=== PATIENT | male | born 1960 | race Caucasian/White ===

== ENCOUNTER 2023-09-25 14:01 | Day surgery (SDC) | payer OTHER, SELFPAY ==
[2023-09-25] MEDS: LACTATED RINGERS 1,000 ML 42 ML IV (14:37)
[2023-09-25 14:50] VITALS: BP 134/74; PULSE 60; RESP 20; TEMP 36.2; O2SAT 98
--- NOTE | 2023-09-25 15:18 | P.HP_ITS ---
History of Present Illness History of Present Illness Chief complaint: EGD Narrative: GE reflux [facility] Medical History Excessive daytime sleepiness (~2014) Fatigue due to sleep pattern disturbance (~2014) Insomnia due to medical condition (~2014) Obesity (BMI 30-39.9) Obstructive sleep apnea, adult (~2014) Snoring (Unknown) Social History Smoking Status: Never smoker alcohol intake: current substance use type: does not use caffeine: Yes Meds Home Medications and Allergies Home Medications Medication Instructions Recorded Confirmed Type amlodipine 5 mg tablet 5 mg PO DAILY 06/21/23 09/25/23 History loratadine 10 mg tablet (Allergy 10 mg PO DAILY 06/21/23 09/25/23 History Relief (loratadine)) pantoprazole 40 mg tablet,delayed 40 mg PO DAILY 06/21/23 09/25/23 History release (Protonix) tizanidine 4 mg capsule 4 mg PO BEDTIME 06/21/23 09/25/23 History Allergies Allergy/AdvReac Type Severity Reaction Status Date / Time PENICILLIN Allergy Mild Uncoded 09/25/23 14:40 TETRACYCLINE Allergy Mild Uncoded 09/25/23 14:40 Exam Vital Signs (past 8 hours): - 09/25/23 14:50 Temperature 97.2 F L Pulse Rate 60 Respiratory Rate 20 Blood Pressure 134/74 Pulse Oximetry 98 Oxygen Delivery Method Room Air Oxygen Delivery Method Room Air Narrative Exam Narrative: Oropharynx free of lesions Chest clear to auscultation percussion Cardiac exam reveals no S3 or murmur Assessment & Plan Assessment & Plan narrative: GE reflux need to assess for Mireles's esophagus and on healed esophagitis. Risks, benefits, alternatives have been explained.
--- NOTE | 2023-09-25 15:19 | PM.OP.EGD ---
Operative Date/Time/Diagnoses Date of procedure: 09/25/23 Pre-op diagnosis: See indication and findings Procedure & Clinicians Study performed: EGD Indications: GERD Surgeon: Dorcas Fu Procedure Notes Procedure in detail: After informed consent was obtained the patient was placed in left lateral decubitus position. The video upper scope was placed into the oropharynx and with the patient's help swallowed into the esophagus. The esophagus stomach and duodenum were carefully examined. On withdrawal, retroflexed view the GE junction was performed. The scope was removed. The patient tolerated procedure well. Blood loss none Complications none Sedation mac Findings 1. Normal esophagus with well-defined squamocolumnar junction. No clear migration of salmon-colored mucosa above the top of the G folds. 2. Moderately patulous LES. 3. Normal stomach 4. Normal duodenal bulb and sweep Mr. Duong just stay on his current medication and follow up as needed in the next 6-12 months
[2023-09-25 15:45] VITALS: BP 125/76; PULSE 72; RESP 13; TEMP 37.2; O2SAT 97
[2023-09-25 15:51] VITALS: BP 129/68; PULSE 66; RESP 12; O2SAT 98
[2023-09-25 15:56] VITALS: BP 125/72; PULSE 64; RESP 12; TEMP 37.2; O2SAT 97
== END 2023-09-25 16:07 | disposition home or self-care (01) ==
PROVIDERS: Referring Provider Internal Medicine Gastroenterology; Visit Provider Internal Medicine Gastroenterology
PROC: 0DJ08ZZ Inspection of Upper Intestinal Tract, Via Natural or Artificial Opening Endoscopic (ICD-10-PCS; CPT 43235; principal; 2023-09-25 15:00)
DX: K21.9 Gastro-esophageal reflux disease without esophagitis (principal)
CPT/HCPCS: 43235; J2704; J3010

== ENCOUNTER → 2024-01-13 08:21 | Outpatient (CLI) | payer OTHER, SELFPAY ==
--- NOTE | 2024-01-13 | DI.US.S_ITS ---
PROCEDURE: US INJECT OR DRAIN JOINT INDICATIONS: BICIPITAL TENDINITIS TECHNIQUE: The indications, alternatives, benefits, risks, and complications of the procedure were explained to the patient. Written informed consent was obtained and placed in the chart. The patient was placed in an appropriate position on the fluoroscopy table, and a site was chosen for percutaneous access under ultrasound guidance. Local anesthetic was administered using a 1% lidocaine solution. A hypodermic or spinal needle was then used to access the symptomatic tendon sheath. Intra-articular location of the needle tip was confirmed by real time ultrasound imaging, followed by steroid administration. The needle was then withdrawn, and a bandage applied to the puncture site. COMPARISON: [facility], US, US INJECT OR DRAIN JOINT, 01/13/2024, 8:52. [facility] [place], CR, XR SHOULDER 2+ VIEWS BILATERAL, 12/12/2020, 16:08. FINDINGS: Joint injected: Right bicipital tendon sheath Medications injected: 4 mL of 40 mg/mL Kenalog and 0.5% Ropivacaine mixture. Complications: None. IMPRESSION: Successful ultrasound guided administration of steroid and anaesthetic solution into the right biceps tendon sheath. Dictated by: Shine Ricci M.D. on 01/13/2024 at 14:20 Approved by: Shine Ricci M.D. on 01/13/2024 at 14:22
--- NOTE | 2024-01-13 | DI.US.S_ITS ---
PROCEDURE: US INJECT OR DRAIN JOINT INDICATIONS: Bicipital tendonitis. TECHNIQUE: The indications, alternatives, benefits, risks, and complications of the procedure were explained to the patient. Written informed consent was obtained and placed in the chart. The patient was placed in an appropriate position on the fluoroscopy table, and a site was chosen for percutaneous access under ultrasound guidance. Local anesthetic was administered using a 1% lidocaine solution. A hypodermic or spinal needle was then used to access the symptomatic biceps tendon sheath. Intra-articular location of the needle tip was confirmed by real time ultrasound imaging, followed by steroid administration. The needle was then withdrawn, and a bandage applied to the puncture site. COMPARISON: [facility], US, US INJECT OR DRAIN JOINT, 01/13/2024, 8:52. FINDINGS: Joint injected: Left biceps tendon sheath Medications injected: 4 mL of 40 mg/mL Kenalog and 0.5% Ropivacaine mixture. Complications: None. IMPRESSION: Successful ultrasound guided administration of steroid and anaesthetic solution into the left biceps tendon sheath. Dictated by: Shine Ricci M.D. on 01/13/2024 at 14:45 Approved by: Shine Ricci M.D. on 01/13/2024 at 14:46
== END ==
PROVIDERS: Referring Provider Orthopaedic Surgery; Visit Provider Orthopaedic Surgery
DX: M75.21 Bicipital tendinitis, right shoulder (principal); M75.22 Bicipital tendinitis, left shoulder
CPT/HCPCS: 20611

== ENCOUNTER → 2024-05-15 19:23 | Outpatient (CLI) | payer OTHER, SELFPAY | PROVIDERS: Referring Provider Internal Medicine; Visit Provider Internal Medicine | DX: Z23 Encounter for immunization (principal) | CPT/HCPCS: 90471; 90656 ==

== ENCOUNTER → 2024-09-17 08:10 | Outpatient (CLI) | payer OTHER, SELFPAY ==
--- NOTE | 2024-09-17 08:11 | DI.MRI.S_ITS ---
PROCEDURE: MR SHOULDER RT WO CON INDICATIONS: bilateral shoulder pain TECHNIQUE: Noncontrast oblique coronal T2 fast spin echo with fat saturation, oblique sagittal T1 spin echo and T2 fast spin echo with fat saturation, axial T1 spin echo and T2 fast spin echo with fat saturation through the shoulder. COMPARISON: [facility], MR, MR SHOULDER LT WO CON, 09/17/2024, 8:28. [facility] [place], CR, XR SHOULDER 2+ VIEWS BILATERAL, 12/12/2020, 16:08. FINDINGS: Image quality: Excellent. Rotator cuff: There is high-grade partial articular sided tearing of the supraspinatus tendon and the anterior portion of the infraspinatus tendon at the distal insertions measuring approximately 2 cm in anterior-posterior dimension. Suspected focal full-thickness component. Teres minor tendon is intact. Moderate subscapularis tendinosis. Grade 2 fatty infiltration of the teres minor muscle is suspicious for mild chronic denervation changes. The remaining rotator cuff muscles are normal in bulk. Bones and bursae: No acute trabecular bone injury or fracture. Small chronic traction cystic changes are seen at the posterior superior humeral head and greater tuberosity near the rotator cuff tendon insertions. Mild partial-thickness cartilage irregularity in the glenohumeral joint. Moderate degenerative changes of the acromioclavicular joint subchondral cystic changes, subchondral edema, and marginal osteophyte formation. Small amount of fluid is seen in the subacromial/subdeltoid bursa. No significant glenohumeral effusion. Capsule and soft tissues: Nondisplaced tearing of the superior labrum from anterior superior to posterior superior. There is also nondisplaced tearing of the inferior labrum with a 3 mm paralabral cyst. Additional larger paralabral cyst is seen inferiorly measuring up to 22 x 8 x 11 mm, which approaches the course of the axillary nerve. Proximal biceps long head tendon demonstrates mild tendinosis. There is partial effacement of the fat in the rotator interval. Glenohumeral ligaments appear to be intact. IMPRESSION: 1. High-grade partial articular sided tearing of the supraspinatus tendon and the anterior infraspinatus tendon at their distal insertions measuring approximately 2 cm in anterior-posterior dimension. Suspected focal full-thickness perforation. 2. Moderate subscapularis tendinosis. 3. Grade 2 fatty infiltration of the teres minor muscle is suspicious for chronic denervation changes. An inferior paralabral cyst approaches the axillary nerve in the quadrilateral space. 4. Mild proximal biceps long head tendinosis. 5. Nondisplaced tearing of the superior labrum from anterior superior to posterior superior. Additional nondisplaced tearing of the inferior labrum. Two paralabral cysts are seen inferiorly, the larger measures up to 22 mm and smaller measures 3 mm. 6. Moderate acromioclavicular joint osteoarthrosis. 7. Small subacromial/subdeltoid bursal effusion. Approved by: Fausto Whatley M.D. on 09/17/2024 at 16:10
--- NOTE | 2024-09-17 08:11 | DI.MRI.S_ITS ---
PROCEDURE: MR SHOULDER LT WO CON INDICATIONS: bilateral shoulder pain TECHNIQUE: Noncontrast oblique coronal T2 fast spin echo with fat saturation, oblique sagittal T1 spin echo and T2 fast spin echo with fat saturation, axial T1 spin echo and T2 fast spin echo with fat saturation through the shoulder. COMPARISON: None. FINDINGS: Image quality: Excellent. Rotator cuff: High-grade partial articular sided tearing of the supraspinatus tendon at the distal insertion measuring approximately 10 mm in anterior-posterior dimension. Mild tendinosis and low-grade partial articular sided tearing of the infraspinatus tendon at the distal insertion. Teres minor tendon is intact. Subscapularis tendon demonstrates mild tendinosis. Grade 2 fatty infiltration of the teres minor muscle is suspicious for mild chronic denervation changes. No mass is seen along the course of the axillary nerve. The remaining rotator cuff muscles are normal in bulk. Bones and bursae: No acute trabecular bone injury or fracture. Small chronic traction cystic changes are seen at the posterior superior humeral head and greater tuberosity near the rotator cuff tendon insertions. There is partial-thickness cartilage irregularity in the glenohumeral joint. Moderate degenerative changes at the acromioclavicular joint subchondral cystic changes, subchondral edema, and small marginal osteophytes. Small amount of fluid is seen in the subacromial/subdeltoid bursa. No significant glenohumeral effusion. Capsule and soft tissues: Nondisplaced tearing of the superior labrum extending into the anterior superior and posterior superior labrum. Proximal biceps long head tendon demonstrates mild tendinosis. There is partial effacement of the rotator interval fat. Glenohumeral ligaments are intact. IMPRESSION: 1. High-grade partial articular sided tearing of the supraspinatus tendon at the distal insertion measuring 10 mm in anterior-posterior dimension superimposed on chronic tendinosis. 2. Mild tendinosis and low-grade partial articular sided tearing of the infraspinatus tendinosis at the distal insertion. 3. Mild subscapularis tendinosis. 4. Grade 2 fatty infiltration of the teres minor muscle is suspicious for mild chronic denervation changes. No mass is seen along the course of the axillary nerve. 5. Mild proximal biceps long head tendinosis. 6. Nondisplaced tearing of the superior labrum extending from anterior superior to posterior superior. 7. Moderate acromioclavicular joint osteoarthrosis. 8. Small subacromial/subdeltoid bursal effusion or mild bursitis. Approved by: Fausto Whatley M.D. on 09/17/2024 at 15:40
== END ==
PROVIDERS: Referring Provider Student in an Organized Health Care Education/Training Program; Visit Provider Student in an Organized Health Care Education/Training Program
DX: M75.111 Incomplete rotator cuff tear or rupture of right shoulder, not specified as traumatic (principal); M75.112 Incomplete rotator cuff tear or rupture of left shoulder, not specified as traumatic; S43.431A Superior glenoid labrum lesion of right shoulder, initial encounter; S43.432A Superior glenoid labrum lesion of left shoulder, initial encounter; M19.012 Primary osteoarthritis, left shoulder; M19.011 Primary osteoarthritis, right shoulder; M25.511 Pain in right shoulder; M25.512 Pain in left shoulder
CPT/HCPCS: 73221

== ENCOUNTER → 2024-10-06 16:02 | Outpatient (CLI) | payer OTHER, SELFPAY ==
--- NOTE | 2024-10-06 16:03 | DI.MRI.S_ITS ---
PROCEDURE: MR HIP RT WO CON INDICATIONS: Trochanteric bursitis, Right hip TECHNIQUE: Noncontrast coronal T1 spin echo and STIR through the bony pelvis. Coronal and axial T2 fast spin echo with fat saturation, sagittal T1 spin echo, and oblique axial T2 fast spin echo with fat saturation through the hip. COMPARISON: None. FINDINGS: Image quality: Excellent. Bones and joints: Marrow signal of the lower lumbar, the sacrum and bilateral sacroiliac joints is unremarkable. Mild degenerative changes of bilateral hips. No acute fracture or dislocation either hip. No avascular necrosis of either femoral head. Tendons and ligaments: The right iliopsoas, adductor tendons are unremarkable. Low-grade tear of the right hamstring tendon. Mild peritendinitis of the right gluteal minimus and medius, without tear. No right greater trochanteric bursitis. Labrum and cartilage: Near circumferential labral tear. No paralabral cyst. No focal chondral defect of the right hip. Soft tissues: Colonic diverticulosis. IMPRESSION: 1. Mild peritendinitis of the right gluteal minimus and medius. No right greater trochanteric bursitis. 2. Near circumferential labral tear of the right hip. 3. Mild degenerative changes of bilateral hip. Dictated by: Dian Salamanca M.D. on 10/07/2024 at 10:26 Approved by: Dian Salamanca M.D. on 10/07/2024 at 10:37
== END ==
LOC: MRI 16:02
PROVIDERS: Referring Provider Student in an Organized Health Care Education/Training Program; Visit Provider Student in an Organized Health Care Education/Training Program
DX: M76.01 Gluteal tendinitis, right hip (principal); M70.61 Trochanteric bursitis, right hip; K57.90 Diverticulosis of intestine, part unspecified, without perforation or abscess without bleeding
CPT/HCPCS: 73721

== ENCOUNTER → 2024-11-25 09:03 | Outpatient (CLI) | payer MEDICARE, OTHER, SELFPAY ==
--- NOTE | 2024-11-25 09:06 | DI.US.S_ITS ---
PROCEDURE: US INJECT OR DRAIN JOINT INDICATIONS: bilateral shoulder pain TECHNIQUE: Informed consent was obtained and the injection site or identified via preprocedural imaging. A small amount of fluid was present in the subacromial-subdeltoid bursae bilaterally. The patient, the procedure, and the site were confirmed during a pre-procedure huddle. Using sterile technique and sonographic guidance, a 25 gauge needle was advanced through the skin into the subacromial-subdeltoid bursa. Following sonographic confirmation of needle position within the bursa, a mixture of 0.5 cc 40 mg/mL Kenalog + 0.5 cc 1% lidocaine + 0.5 cc 0.5% bupivacaine was injected into the bursa. The needle was then removed, and hemostasis was obtained with direct pressure. No complications were encountered. The same injection technique was applied to each subacromial-subdeltoid bursa. Multiple images were obtained and archived. COMPARISON: [facility], MR, MR SHOULDER LT WO CON, 09/17/2024, 8:28. [facility], MR, MR SHOULDER RT WO CON, 09/17/2024, 8:51. [facility], , US INJECT OR DRAIN JOINT, 01/13/2024, 8:52. [facility], US, US INJECT OR DRAIN JOINT, 01/13/2024, 8:52. FINDINGS: A small amount of fluid is present in the subacromial-subdeltoid bursa on both sides. IMPRESSION: Technically successful bilateral subacromial-subdeltoid bursal steroid-anesthetic injections under sonographic guidance. Dictated by: Rowdy Barth M.D. on 11/25/2024 at 13:53 Approved by: Rowdy Barth M.D. on 11/25/2024 at 13:57
== END ==
LOC: US 09:04
PROVIDERS: PCP Family Medicine; Referring Provider Family Medicine; Visit Provider Family Medicine
DX: M25.511 Pain in right shoulder (principal); M25.512 Pain in left shoulder
CPT/HCPCS: 20611

== ENCOUNTER 2024-12-16 08:36 | Emergency (ER) | payer OTHER, SELFPAY ==
[2024-12-16 08:48] VITALS: BP 178/87; PULSE 69; RESP 16; TEMP 36.4; O2SAT 99; BMI 30.7
--- NOTE | 2024-12-16 08:51 | ED.EXTPRO ---
HPI - Extremity Problem General Chief complaint: Extremity Problem,Nontraumatic Stated complaint: Left hip pain Time Seen by Provider: 12/16/24 08:51 Source: patient, RN notes reviewed and old records reviewed Limitations: no limitations History of Present Illness HPI Narrative: 64-year-old male history of hypertension presents with complaint of left hip pain. Patient states it is actually behind the hip itself. Started this weekend around Saturday he states he woke up with symptoms. 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 Patient states symptoms continued to slowly worsening and had become more painful over time. He has a increased pain with weight-bearing, particularly with flexion of the hip is improved when extended. When he holds his hip in external rotation and stretches it it is uncomfortable but when released feels improved. Denies any numbness tingling or other changes. No weakness. Denies radiation down the leg most of the time but occasionally has some radiation as he was walking for prolonged period. Denies any other trauma or injuries. Has not had similar symptoms in his hip before. Did have a bursitis on the right in the past in his had shoulder bursitis in the past with steroid injections that were helpful. Patient did see Dr. Sheikh earlier this week had an injection of lidocaine and steroid but did not really have any improvement. He has been continuing to work and move regularly. He has been taking ibuprofen and Tylenol without improvement. States home medications include amlodipine and pantoprazole. Denies any prior hip surgeries. Reports an allergy to penicillin tetracycline. No tobacco. Has a follow up appointment this Saturday with Dr. Sheikh. Related Data Home Medications Medication Instructions Recorded Confirmed amlodipine 5 mg tablet 5 mg PO DAILY 06/21/23 12/14/24 loratadine 10 mg tablet (Allergy 10 mg PO DAILY 06/21/23 12/14/24 Relief (loratadine)) pantoprazole 40 mg tablet,delayed 40 mg PO DAILY 06/21/23 12/14/24 release (Protonix) tizanidine 4 mg capsule 4 mg PO BEDTIME 06/21/23 12/14/24 azelastine 137 mcg (0.1 %) nasal intranasal 11/10/24 12/14/24 spray cetirizine 10 mg tablet 10 mg PO DAILY 11/10/24 12/14/24 meloxicam 7.5 mg tablet 7.5 mg PO DAILY PRN 12/14/24 12/14/24 Previous Rx's Medication Instructions Recorded lidocaine 5 % topical patch 1 patch topical DAILY #60 ea 11/19/24 tramadol 50 mg tablet 50 mg PO Q6H PRN pain #10 tabs 12/16/24 Allergies Allergy/AdvReac Type Severity Reaction Status Date / Time PENICILLIN Allergy Mild Uncoded 12/14/24 15:23 TETRACYCLINE Allergy Mild Uncoded 12/14/24 15:23 Review of Systems Review of Systems ROS Unobtainable: All systems reviewed & are unremarkable except as noted in HPI and below Patient History Medical History Piriformis syndrome of left side Vitamin D deficiency Benign essential hypertension Snoring (Unknown) Obstructive sleep apnea, adult (~2014) Obesity (BMI 30-39.9) Insomnia due to medical condition (~2014) Fatigue due to sleep pattern disturbance (~2014) Excessive daytime sleepiness (~2014) Social History alcohol intake: current substance use type: does not use caffeine: Yes alcohol intake frequency: a few times a week Exam Narrative Exam Narrative: GENERAL: Alert and oriented x three, mild distress HEENT: Head normocephalic, atraumatic, EOMI, pupils reactive, face symmetric, moist mucous membranes NECK: Supple, full range of motion CARDIOVASCULAR: Regular rate and rhythm without murmurs, rubs or gallops. RESPIRATORY: Breath sounds equal bilaterally, no wheezes rales or rhonchi. ABDOMEN: Soft, nontender. Normoactive bowel sounds all 4 quadrants. No guarding or rebound, rigidity, no mass : No CVA tenderness BACK: No lumbar vertebral point tenderness. Patient has normal range of motion. Patient's gait is antalgic. Sensation intact cap refill less than 2 seconds bilateral lower extremities. EXTREMITIES: Normal range of motion, no clubbing or edema. Neurovascularly intact. Patient does have some tenderness posterior to the left hip in the buttock about 2 cm posterior. There is a spot puncture wound consistent with a his recent injection. There was no warmth, erythema or skin changes. Can reproduce pain with palpation distal regularly at that point but no other bony tenderness, patient has a little bit of muscle tightness. He was able to go through full range of motion with flexion-extension external internal rotation with no major issues, no clicks or crepitus noted. NEUROLOGICAL: Cranial nerves II through XII grossly intact. Moving all extremities SKIN: Warm, dry, no petechiae, no rashes or lesions. Initial Vital Signs Initial Vital Signs: Vital Signs Temperature 97.6 F 12/16/24 08:48 Pulse Rate 69 12/16/24 08:48 Respiratory Rate 16 12/16/24 08:48 Blood Pressure 178/87 H 12/16/24 08:48 Pulse Oximetry 99 12/16/24 08:48 Oxygen Delivery Method Room Air 12/16/24 08:48 Course Orders Ordered: ED Orders 12/16/24 09:14 XR hip w pel LT 2V Stat Discontinued Medications Ketorolac Tromethamine (Ketorolac 30 Mg/Ml Vial) 30 mg IM NOW ONE Stop: 12/16/24 09:15 Last Admin: 12/16/24 09:27 Dose: 30 mg Documented By: CTS Vital Signs Vital signs: Vital Signs - 8 hr 12/16/24 08:48 12/16/24 10:21 Temperature 97.6 F Pulse Rate 69 63 Respiratory Rate 16 16 Blood Pressure 178/87 H 153/73 H Pulse Oximetry 99 95 Oxygen Delivery Method Room Air Room Air MDM - Extremity (Nontraumatic) MDM Narrative Medical decision making narrative: 64-year-old male complaint of left hip pain but it was seems to be more muscular posterior. Discussed differential with the patient, Dr. Sheikh suspected piriformis syndrome which does seem likely, bursitis, other musculoskeletal sources are also within the differential. He has been taking ibuprofen and Tylenol with minimal improvement had injection of lidocaine and steroids several days ago without any improvement. No recent trauma the site itself does not appear to have any signs of infection. Discussed with patient we will obtain x-ray to rule out any bony involvement, we will give a short course of oral pain medication, continue with NSAIDs, weightbear as tolerated he has follow up in a 2 more days with the primary care. Left hip x-ray shows no acute change. Discussed with the patient they defer any crutches but weightbear as tolerated. Discharge Plan Departure Patient Disposition: Home Clinical Impression: Left buttock pain Instructions: Piriformis Syndrome Activity Restrictions/Additional Instructions: Please follow up with Dr. Sheikh at your appointment on Saturday. Please let the office know that you have filled out L and I paperwork. Weightbear as tolerated. Continue with gentle stretching if you find it helpful. Continue with ibuprofen up to 800 mg every 8 hours as needed, you can take acetaminophen with the medication. If inadequate for pain control you can take tramadol 1-2 tablets every 6 hours as needed for pain. This medication can make you sleepy do not drive, perform hazardous activities or make any major decisions while taking it. This medication will make you constipated please take a stool softener once to twice daily until stools are soft and regular. Prescription sent to [facility] pharmacy in [place]. Please return for new or worsening symptoms, redness, swelling, new weakness, loss of sensation, any loss of bowel or bladder control or numbness of the groin area, new swelling of the leg or other new or concerning changes. Prescriptions: New tramadol 50 mg tablet 50 mg PO Q6H PRN (Reason: pain) Qty: 10 0RF No Action lidocaine 5 % adhesive patch,medicated 1 patch topical DAILY MDD Max 2 patches daily Qty: 60 11RF Rx Instructions: leave on most painful area for up to 12 hrs cetirizine 10 mg tablet 10 mg PO DAILY azelastine 137 mcg (0.1 %) spray,non-aerosol intranasal meloxicam 7.5 mg tablet 7.5 mg PO DAILY PRN amlodipine 5 mg tablet 5 mg PO DAILY loratadine [Allergy Relief (loratadine)] 10 mg tablet 10 mg PO DAILY pantoprazole [Protonix] 40 mg tablet,delayed release (DR/EC) 40 mg PO DAILY tizanidine 4 mg capsule 4 mg PO BEDTIME Referrals: Leonela Worthy DO [Primary Care Provider] - Stand Alone Forms: Patient Portal/API/Survey, Work Release Note
--- NOTE | 2024-12-16 09:14 | DI.RAD.S_ITS ---
PROCEDURE: XR HIP W PEL IF DONE LT 2V INDICATIONS: Pain posterior L hip TECHNIQUE: AP pelvis with lateral view(s) of the left hip(s). COMPARISON: None. FINDINGS: Bones: No fractures or dislocations. Pelvic ring appears intact. No suspicious bony lesions. Moderate bilateral arthritic change within the hips. Soft tissues: The visualized bowel gas pattern is normal. No suspicious soft tissue calcifications. IMPRESSION: No visualized acute fracture or dislocation. However, if clinical concern and/or pain persist, short interval imaging followup in 7-10 days is recommended, as occult injury cannot be definitively excluded Dictated by: Carrie Ceja M.D. on 12/16/2024 at 9:49 Approved by: Carrie Ceja M.D. on 12/16/2024 at 9:49
[2024-12-16] MEDS: KETOROLAC 30 MG/ML VIAL IM (09:27)
[2024-12-16 10:21] VITALS: BP 153/73; PULSE 63; RESP 16; O2SAT 95
== END 2024-12-16 10:21 | disposition home or self-care (01) ==
PROVIDERS: Emergency Provider Emergency Medicine; PCP Family Medicine
DX: M79.18 Myalgia, other site (principal)
CPT/HCPCS: 73502; 96372; 99283; J1885

== ENCOUNTER → 2025-01-04 12:07 | Outpatient (CLI) | payer OTHER, SELFPAY ==
--- NOTE | 2025-01-04 13:30 | DI.MRI.S_ITS ---
PROCEDURE: MR HIP LT WO CON INDICATIONS: L hip pain TECHNIQUE: Noncontrast coronal T1 spin echo and STIR through the bony pelvis. Coronal and axial T2 fast spin echo with fat saturation, sagittal T1 spin echo, and oblique axial T2 fast spin echo with fat saturation through the hip. COMPARISON: [facility], CR, XR HIP W PEL LT 2V, 12/16/2024, 9:22. [facility], MR, MR HIP RT WO CON, 10/06/2024, 17:48. FINDINGS: Image quality: Excellent. Bones and joints: [id number] bilateral hip joint osteoarthritic changes are seen with superior joint space narrowing, subchondral sclerosis and tiny marginal osteophyte formation slightly worse on the right side. No marrow edema. No acute fracture or dislocation. No avascular necrosis of the femoral heads. The visualized lower lumbar spine appears normally aligned. Tendons and ligaments: Mild distal left gluteus medius and minimus tendinosis at their insertions on greater trochanter is seen. No fluid distension of trochanteric bursa. The nearby proximal iliotibial band also appears intact. The iliopsoas tendon appears intact, without adjacent bursal fluid collections or evidence for impingement syndrome. Mild tendinosis involving left hamstring tendon origins at ischial tuberosity is seen. Labrum and cartilage: There is thinning of articulating cartilage over left femoral head with fraying of superior anterior left acetabular labrum and T2 hyperintense signal concerning for superior anterior labral tear. Soft tissues: Visualized muscles demonstrate normal bulk and internal signal. Quadratus femoris muscle demonstrates no internal edema to suggest ischiofemoral impingement. The proximal sciatic neurovascular bundle appears normal adjacent to the hamstring tendons. No free pelvic fluid. Bladder wall thickness is normal. Enlarged prostate gland with mass effect on floor of urinary bladder is seen. Mild diffuse bladder wall thickening likely represent chronic outlet obstruction. IMPRESSION: 1. Szte-[id number] bilateral hip joint osteoarthritis slightly worse on the right side. No marrow edema. No fracture or dislocation. No evidence of avascular necrosis of femoral head. 2. 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 Mild tendinosis also seen involving left hamstring tendon origins at ischial tuberosity. 3. Suggestion of superior anterior left acetabular labral tear. Dictated by: Elliott Merino M.D. on 01/04/2025 at 15:25 Approved by: Elliott Merino M.D. on 01/04/2025 at 15:35
== END ==
PROVIDERS: PCP Family Medicine; Referring Provider Family Medicine; Visit Provider Family Medicine
DX: M79.18 Myalgia, other site (principal); M16.0 Bilateral primary osteoarthritis of hip; D73.89 Other diseases of spleen
CPT/HCPCS: 73721

== ENCOUNTER 2025-01-14 11:17 | Emergency (ER) | payer MEDICARE, OTHER, SELFPAY ==
[2025-01-14 11:24] VITALS: BP 166/85; PULSE 105; RESP 18; TEMP 36.9; O2SAT 97; BMI 31.3
--- NOTE | 2025-01-14 14:20 | ED_ITS ---
HPI - Skin/Abscess/Foreign Bdy <Kristy Correa PA-C - Last Filed: 01/14/25 18:49> General Chief complaint: Skin/Abscess/Foreign Body Stated complaint: abscess on left butt cheek Time Seen by Provider: 01/14/25 14:03 Source: patient Mode of arrival: Ambulatory Limitations: no limitations History of Present Illness HPI narrative: Mr. Duong is a pleasant 64-year-old male with a past medical history of hypertension who presents to the emergency department for left-sided perirectal pain x 4 days. Patient states on Saturday after going to the bathroom and wiping he noticed some fullness and pain in the left side of his anus. This pain and swelling has continued to worsen so he saw his PCP today, Dr. Worthy, and history and physical exam was concerning for a left-sided perirectal abscess. The patient was referred to surgery and was scheduled for an appointment tomorrow. He was given pain medication and recommended Sitz baths until then. However the pain continued to get much worse and the patient actually went to the surgery office and was told that tomorrow will be a consultation with a surgeon and they will not actually be able to drain it so they canceled his appointment and advised him to come to the emergency department for surgical consultation. At this time the patient reports extreme discomfort on the left side of the anus, making it difficult to sit. He has also been having chills and feeling generally unwell with decreased appetite. He has not having diarrhea or constipation, he did have a soft bowel movement today that was rather normal. No vomiting. 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 He has never had an abscess in the past, he has had a fissure and a hemorrhoid in the past. He does not engage in receptive anal intercourse. Related Data Home Medications ?Medication ?Instructions ?Recorded ?Confirmed amlodipine 5 mg tablet 5 mg PO DAILY 06/21/2301/22 loratadine 10 mg tablet (Allergy 10 mg PO DAILY 01/22/25 Relief (loratadine)) pantoprazole 40 mg tablet,delayed 40 mg PO DAILY 06/2101/22/25 release (Protonix) tizanidine 4 mg capsule 4 mg PO BEDTIME 06/21/23 azelastine 137 mcg (0.1 %) nasal intranasal 11/10/24 0 01/22/25 spray cetirizine 10 mg tablet 10 mg PO DAILY 11/10/2401/04 meloxicam 7.5 mg tablet 7.5 mg PO DAILY PRN 12/14/24 01/22/25 oxybutynin chloride 5 mg tablet 5 mg PO DAILY 01/14/25 01/22/25 Previous Rx's ?Medication ?Instructions ?Recorded lidocaine 5 % topical patch 1 patch topical DAILY #60 ea 11/19/24 tramadol 50 mg tablet 50 mg PO Q6H PRN pain #10 ta bs 12/16/24 methylprednisolone 4 mg tablet See Rx Instructions .Ro [facility] [place] 12/18/24 .COMPLEX #1 packet methylprednisolone 4 mg tablets in See Rx Instructions PO PER PKG DIR 12/18/24 a dose pack (Medrol (Manny)) #21 ea cyclobenzaprine 10 mg tablet 10 mg PO BEDTIME #30 tabs 12/23/24 meloxicam 15 mg tablet 15 mg PO DAILY #30 tabs 12/04 08/29 hydrocodone 5 mg-acetaminophen 325 1 tab PO Q6H PRN pa in #20 tabs 01/14/25 mg tablet hydrocortisone 2.5 % topical cream 1 applic NJ QD-BID PRN pain #30 01/14/25 with perineal applicator grams (Anusol-HC) Allergies Allergy/AdvReac Type Severity Reaction Status Date / Time Penicillins Allergy Intermediate Verified 01/22/25 09:21 Tetracyclines Allergy Intermediate Hives Verified 01/22/25 09:21 Review of Systems <Kristy Correa PA-C - Last Filed: 01/14/25 18:49> Review of Systems ROS Unobtainable: All systems reviewed & are unremarkable except as noted in HPI and below Patient History <Kristy Correa PA-C - Last Filed: 01/14/25 18:49> Medical History Piriformis syndrome of left side Vitamin D deficiency Benign essential hypertension Snoring (Unknown) Obstructive sleep apnea, adult (~2014) Obesity (BMI 30-39.9) Insomnia due to medical condition (~2014) Fatigue due to sleep pattern disturbance (~2014) Excessive daytime sleepiness (~2014) Social History alcohol intake: current substance use type: does not use caffeine: Yes Smoking Status: Never smoker alcohol intake frequency: a few times a week Exam <Kristy Correa PA-C - Last Filed: 01/14/25 18:49> Narrative Exam Narrative: GENERAL: 64 year old patient appears stated age. Well-developed patient, in no acute distress. HEAD: Atraumatic. Normocephalic. EYES: No scleral icterus. No injection or drainage. NECK: Trachea midline. Cervical ROM intact. CARDIOVASCULAR: Regular rate and rhythm. RESPIRATORY: ?Nonlabored respirations. ?Speaking in clear, full sentences. ?Clear to auscultation. Breath sounds equal bilaterally. No wheezes, rales, or rhonchi. ? GASTROINTESTINAL: Abdomen soft, non-tender, nondistended. Bowel sounds present. On the left side of the anal sphincter, patient has approximately 2-3 cm area of erythema and induration that is extremely tender. No fluctuance. NEURO: AOx3. ?Clear speech. ?Moves all 4 extremities appropriately. SKIN: Left-sided anal erythema and induration described above, no rashes. Skin is warm and dry. Initial Vital Signs Initial Vital Signs: Vital Signs Temperature 98.5 F 01/14/25 11:24 Pulse Rate 105 H 01/14/25 11:24 Respiratory Rate 18 01/14/25 11:24 Blood Pressure 166/85 H 01/14/25 11:24 Pulse Oximetry 97 01/14/25 11:24 Oxygen Delivery Method Room Air 01/14/25 11:24 <Kori Loza DO - Last Filed: 01/25/25 07:39> Initial Vital Signs Initial Vital Signs: Vital Signs Temperature 98.5 F 01/14/25 11:24 Pulse Rate 105 H 01/14/25 11:24 Respiratory Rate 18 01/14/25 11:24 Blood Pressure 166/85 H 01/14/25 11:24 Pulse Oximetry 97 01/14/25 11:24 Oxygen Delivery Method Room Air 01/14/25 11:24 Course <Kristy Correa PA-C - Last Filed: 01/14/25 18:49> Orders Ordered: Discontinued Medications Acetaminophen (Acetaminophen 325 Mg Tablet) 650 mg PO NOW ONE Stop: 01/14/25 16:32 Last Admin: 01/14/25 16:49 Dose: 650 mg Documented By: JESSICA Sodium Chloride (Normal Saline 0.9%) 1,000 mls @ 1,000 mls/hr IV BOLUS PRN PRN Reason: Fluid replacement Last Infusion: 01/14/25 16:20 Dose: Infused Documented By: Admin: 01/14/25 15:08 Dose: 1,000 mls/hr Documented By: JESSICA Ketorolac Tromethamine (Ketorolac 30 Mg/Ml Vial) 15 mg IV NOW ONE Stop: 01/14/25 14:43 Last Admin: 01/14/25 15:05 Dose: 15 mg Documented By: JESSICA Lidocaine/Epinephrine (Lidocaine 1% W/Epi 10ml) 20 ml INJ INTRA-OP ONE Stop: 01/14/25 17:37 Last Admin: 01/14/25 18:00 Dose: 20 ml Documented By: JESSICA Morphine Sulfate (Morphine 4 Mg/Ml Inj) 4 mg IV NOW ONE Stop: 01/14/25 14:41 Last Admin: 01/14/25 15:06 Dose: 4 mg Documented By: JESSICA Ondansetron HCl (Ondansetron 4 Mg/2 Ml Inj) 4 mg IV NOW ONE Stop: 01/14/25 14:41 Last Admin: 01/14/25 15:06 Dose: 4 mg Documented By: JESSICA Consultations Consultation #1: Consulted General surgery on-call, Dr. Gibson. Discussed patient case and CT results. He will come down to the ER to see the patient. Time: 17:00 Vital Signs Vital signs: Vital Signs - 8 hr 01/14/25 11:24 01/14/25 16:46 01/14/25 18:42 Temperature 98.5 F Pulse Rate 105 H 79 72 Respiratory Rate 18 20 19 Blood Pressure 166/85 H 148/78 H 142/75 H Pulse Oximetry 97 99 99 Oxygen Delivery Method Room Air Room Air <Kori Loza DO - Last Filed: 01/25/25 07:39> Orders Ordered: Discontinued Medications Acetaminophen (Acetaminophen 325 Mg Tablet) 650 mg PO NOW ONE Stop: 01/14/25 16:32 Last Admin: 01/14/25 16:49 Dose: 650 mg Documented By: JESSICA Sodium Chloride (Normal Saline 0.9%) 1,000 mls @ 1,000 mls/hr IV BOLUS PRN PRN Reason: Fluid replacement Last Infusion: 01/14/25 16:20 Dose: Infused Documented By: Admin: 01/14/25 15:08 Dose: 1,000 mls/hr Documented By: JESSICA Ketorolac Tromethamine (Ketorolac 30 Mg/Ml Vial) 15 mg IV NOW ONE Stop: 01/14/25 14:43 Last Admin: 01/14/25 15:05 Dose: 15 mg Documented By: JESSICA Lidocaine/Epinephrine (Lidocaine 1% W/Epi 10ml) 20 ml INJ INTRA-OP ONE Stop: 01/14/25 17:37 Last Admin: 01/14/25 18:00 Dose: 20 ml Documented By: JESSICA Morphine Sulfate (Morphine 4 Mg/Ml Inj) 4 mg IV NOW ONE Stop: 01/14/25 14:41 Last Admin: 01/14/25 15:06 Dose: 4 mg Documented By: JESSICA Ondansetron HCl (Ondansetron 4 Mg/2 Ml Inj) 4 mg IV NOW ONE Stop: 01/14/25 14:41 Last Admin: 01/14/25 15:06 Dose: 4 mg Documented By: JESSICA Vital Signs Vital signs: Vital Signs - 8 hr 01/14/25 11:24 01/14/25 16:46 01/14/25 18:42 Temperature 98.5 F Pulse Rate 105 H 79 72 Respiratory Rate 18 20 19 Blood Pressure 166/85 H 148/78 H 142/75 H Pulse Oximetry 97 99 99 Oxygen Delivery Method Room Air Room Air MDM - Skin/Abscess/Foreign Bdy <Kristy Correa PA-C - Last Filed: 01/14/25 18:49> Medical Records Attestation: I reviewed the patient's medical records. Lab Data 01/14/25 14:44 01/14/25 14:44 Labs: Lab Results 01/14/25 Range/Units 14:44 WBC 10.5 (4.5-11.0) X10^3/uL RBC 4.50 (4.5-5.9) X10^6/uL Hgb 13.9 (13.5-17.5) g/dL Hct 40.1 L (41-53) % MCV 88.9 (80-100) fL MCH 30.9 (26-34) PG MCHC 34.8 (30-36) % RDW 13.6 (11.6-14.8) % Plt Count 249 (150-400) X10^3/uL Neut % (Auto) 71.8 (50-75) % Lymph % (Auto) 18.3 L (25-40) % Cameron % (Auto) 8.9 (3-14) % Eos % (Auto) 0.6 L (2-4) % Baso % (Auto) 0.4 (0-2) % Neut # (Auto) 7600 H (9519-9972) /uL Lymph # (Auto) 1900 (7936-4829) /uL Cameron # (Auto) 900 (0-900) /uL Eos # (Auto) 100 (0-450) /uL Baso # (Auto) 0 (0-100) /uL Sodium 138 (137-145) mmol/L Potassium 3.8 (3.4-5.1) mmol/L Chloride 102 (98-107) mmol/L Carbon Dioxide 31 (22-32) mmol/L BUN 19 (9-20) mg/dL Creatinine 1.08 (0.66-1.25) mg/dL Estimated GFR > 60 (>60) mL/min BUN/Creatinine Ratio 17.6 (6-22) Glucose 114 H (70-99) mg/dL Lactate 0.9 (0.7-2.1) mmol/L Calcium 9.3 (8.4-10.2) mg/dL Total Bilirubin 0.6 (0.2-1.3) mg/dL AST 22 (17-59) IU/L ALT 23 (<50) IU/L Alkaline Phosphatase 67 (38-126) U/L Total Protein 7.4 (6.3-8.2) g/dL Albumin 4.3 (3.5-5.0) g/dL Globulin 3.1 (1.7-4.1) g/dL Albumin/Globulin Ratio 1.4 (1.0-2.8) Lipase 60 (23-300) U/L Urine RBC 1-5/hpf (0-5/HPF) Urine WBC 0-1/hpf (0-5/HPF) Ur Squamous Epith Cells 0-1 /hpf (0-5/HPF) Urine Bacteria None seen (None) Ur Culture Indicated? Cult not indicated Vol Urine Centrifuged 10ml (spun) Urine Dip Bedside Urine Glucose Negative Bedside Urine Bilirubin - Negative Bedside Urine Ketone - Negative Urine Specific Peel 1.010 Bedside Urine Occult Blood ++ Bedside Urine pH 6.5 Bedside Urine Protein - Negative Bedside Urine Urobilinogen - Negative Bedside Urine Nitrite - Negative Bedside Urine Leukocytes - Negative Esterase Imaging Data CT scan - abdomen/pelvis: Radiologist's Impression: PROCEDURE: CT ABDOMEN PELVIS W CON INDICATIONS: left rectal pain concern for abscess TECHNIQUE: After the administration of intravenous contrast, axial sections acquired from the lung bases to the pubic symphysis. Coronal and sagittal reformats were performed. For radiation dose reduction, the following was used: automated exposure control, adjustment of mA and/or kV according to patient size. COMPARISON: None. FINDINGS: Image quality: Diagnostic. Lower Chest: Punctate 2 mm right lower lobe nodule (4/4). Coronary artery calcifications. ABDOMEN: Liver: No solid mass. Gallbladder: No radiopaque gallstones or wall thickening. Biliary ducts: No biliary dilation. Pancreas: No ductal dilation. Spleen: Size is within normal limits. Adrenal Glands: No adrenal nodules. Kidneys and Ureters: No hydronephrosis. No solid mass. No complex renal cystic lesion which requires follow up. Stomach and Bowel: Normal colonic caliber, without significant wall thickening. Soft tissue density with surrounding inflammation at the left aspect of the anus measuring 3.1 x 4.6 cm. Diverticulosis without evidence of acute diverticulitis. Normal appendix. Peritoneum: No abnormal intraperitoneal fluid. No free air. Ventral Wall: No significant ventral hernia. Abdominal Nodes: No retroperitoneal or mesenteric adenopathy by size criteria. Vessels: Aorta and inferior vena cava are normal in size. Atherosclerotic vascular calcifications. PELVIS: Pelvic Organs: Unremarkable. Bladder: No bladder wall thickening, accounting for underdistention. Pelvic Nodes: No enlarged lymph nodes. Miscellaneous: No inguinal hernias are seen. Bones: No aggressive osseous abnormality. IMPRESSION: 1. Soft tissue density with surrounding inflammation of the left aspect of the anus measuring up to 4.6 cm. Findings may represent phlegmon. Recommend clinical correlation and follow-up to exclude underlying neoplastic process. 2. Please see above for additional findings. Dictated by: Ray Del Valle M.D. on 01/14/2025 at 16:30 Approved by: Ray Del Valle M.D. on 01/14/2025 at 16:34 MDM Narrative Medical decision making narrative: 64-year-old male with a past medical history of hypertension who presents to the emergency department for left-sided perirectal pain x 4 days. Differential diagnosis includes but is not limited to perianal abscess, perirectal abscess, deep space abscess, colitis, cellulitis, etc. On exam patient is in no acute distress, nontoxic appearing, heart rate is elevated in triage, he is afebrile. Abdomen is soft and nontender but he does have significant erythema and induration on the left side of the anus. We will obtain CBC, CMP, lipase, lactate, CT abdomen pelvis with IV contrast, treat with fluids Zofran morphine Toradol at this time. May need to consult general surgery given CT results. Labs reveal WBC count 10.5, hemoglobin 13.9. Normal sodium 138, potassium 3.8. Renal function with BUN of 19 creatinine of 1.08. Glucose 114. Normal LFTs and lipase. UA with 1-5 urine RBCs, 0-1 urine WBCs, 0-1 squamous epithelial cells, patient not having any or any symptoms, states he has a history of left kidney cyst. CT reveals soft tissue density with surrounding inflammation of the left aspect of the anus measuring up to 4.6 cm. Findings may represent phlegmon. Recommend clinical correlation and follow up to exclude underlying neoplastic process. Discussed case with on-call surgeon who will come see the patient. Patient's pain is improved at this time, discussed all CT results with him including incidental findings. General surgeon, Dr. Gibson, evaluated the patient at bedside. He determined patient's symptoms were consistent with an abscess, with the patient's consent an I&D was performed and wound culture obtained. He recommends patient follow up with surgeon office in 1 week, patient does not need antibiotics, patient does need pain control for dressing changes. Patient feeling much better after his procedure. He had a prescription of hydrocodone-acetaminophen sent to his pharmacy from his PCP earlier today that he will leaf size picker and use, I also recommended ibuprofen, Tylenol, Sitz baths, warm compresses, wound care, ED return precautions. Patient verbalized understanding of all information and is agreeable to the plan, all questions answered, he is stable for discharge home. <Kori Loza, DO - Last Filed: 01/25/25 07:39> Lab Data Labs: Lab Results 01/14/25 Range/Units 14:44 WBC 10.5 (4.5-11.0) X10^3/uL RBC 4.50 (4.5-5.9) X10^6/uL Hgb 13.9 (13.5-17.5) g/dL Hct 40.1 L (41-53) % MCV 88.9 (80-100) fL MCH 30.9 (26-34) PG MCHC 34.8 (30-36) % RDW 13.6 (11.6-14.8) % Plt Count 249 (150-400) X10^3/uL Neut % (Auto) 71.8 (50-75) % Lymph % (Auto) 18.3 L (25-40) % Cameron % (Auto) 8.9 (3-14) % Eos % (Auto) 0.6 L (2-4) % Baso % (Auto) 0.4 (0-2) % Neut # (Auto) 7600 H (2117-3279) /uL Lymph # (Auto) 1900 (1844-0324) /uL Cameron # (Auto) 900 (0-900) /uL Eos # (Auto) 100 (0-450) /uL Baso # (Auto) 0 (0-100) /uL Sodium 138 (137-145) mmol/L Potassium 3.8 (3.4-5.1) mmol/L Chloride 102 (98-107) mmol/L Carbon Dioxide 31 (22-32) mmol/L BUN 19 (9-20) mg/dL Creatinine 1.08 (0.66-1.25) mg/dL Estimated GFR > 60 (>60) mL/min BUN/Creatinine Ratio 17.6 (6-22) Glucose 114 H (70-99) mg/dL Lactate 0.9 (0.7-2.1) mmol/L Calcium 9.3 (8.4-10.2) mg/dL Total Bilirubin 0.6 (0.2-1.3) mg/dL AST 22 (17-59) IU/L ALT 23 (<50) IU/L Alkaline Phosphatase 67 (38-126) U/L Total Protein 7.4 (6.3-8.2) g/dL Albumin 4.3 (3.5-5.0) g/dL Globulin 3.1 (1.7-4.1) g/dL Albumin/Globulin Ratio 1.4 (1.0-2.8) Lipase 60 (23-300) U/L Urine RBC 1-5/hpf (0-5/HPF) Urine WBC 0-1/hpf (0-5/HPF) Ur Squamous Epith Cells 0-1 /hpf (0-5/HPF) Urine Bacteria None seen (None) Ur Culture Indicated? Cult not indicated Vol Urine Centrifuged 10ml (spun) Urine Dip Bedside Urine Glucose Negative Bedside Urine Bilirubin - Negative Bedside Urine Ketone - Negative Urine Specific Peel 1.010 Bedside Urine Occult Blood ++ Bedside Urine pH 6.5 Bedside Urine Protein - Negative Bedside Urine Urobilinogen - Negative Bedside Urine Nitrite - Negative Bedside Urine Leukocytes - Negative Esterase Discharge Plan Departure Patient Disposition: Home Clinical Impression: Abscess, perianal Instructions: DI for Anal Abscess Activity Restrictions/Additional Instructions: Dear Maritza Rhoda, Thank you for coming to the emergency department. Today you were evaluated and had a perianal abscess drained by General surgeon Dr. Gibson. He would like you to follow up with the [place] surgeon's office within 1 week. Please rest, use stool softener to prevent constipation and straining such as MiraLax, and follow up with your primary care doctor as well. You may use ibuprofen and Tylenol for pain in addition to the previously prescribed hydrocodone- acetaminophen from your primary care doctor. Please keep the wound clean, dry and covered at all times. Please take Ibuprofen (Motrin/Advil) or Acetaminophen (Tylenol) for pain. These are available over the counter. You may take Ibuprofen 600 mg every 8 hours with food for pain. You may also take Acetaminophen 650 mg every 4-6 hours for pain. Do not exceed 3000 mg of Tylenol a day as this can cause liver damage. Do not drink alcohol with either of these medications. Please return to the emergency department if you develop any new or worsening symptoms, fevers, severe pain or other concerns. Please follow up with your primary care doctor within the next 2-3 days for ER follow-up. (If you do not have a PCP you can call [phone]. ?to schedule an appointment with an [facility] Primary Care Provider) IF YOU DEVELOP ANY NEW OR WORSENING SYMPTOMS, RETURN TO THE ER! Please read the attached instructions, they highlight more specific treatments and interventions for you at home. Thank you for letting me participate in your care, Kristy Correa PA-C Prescriptions: No Action lidocaine 5 % adhesive patch,medicated 1 patch topical DAILY MDD Max 2 patches daily Qty: 60 11RF Rx Instructions: leave on most painful area for up to 12 hrs meloxicam 15 mg tablet 15 mg PO DAILY Qty: 30 1RF cyclobenzaprine 10 mg tablet 10 mg PO BEDTIME Qty: 30 1RF methylprednisolone [Medrol (Manny)] 4 mg tablets,dose pack See Rx Instructions PO PER PKG DIR Qty: 21 0RF Rx Instructions: PO PER PKG DIR for 6 days methylprednisolone 4 mg tablet See Rx Instructions .ROUTE .COMPLEX Qty: 1 0RF Rx Instructions: Methylprednisolone Dose package Day 1: 24 mg on day 1 administered as 8 mg before breakfast, 4 mg after lunch, 4 mg after supper, and 8 mg at bedtime or 24 mg as a single dose or divided into 2 or 3 doses upon initiation (regardless of time of day). Day 2: 20 mg on day 2 administered as 4 mg before breakfast, 4 mg after lunch, 4 mg after supper, and 8 mg at bedtime. Day 3: 16 mg on day 3 administered as 4 mg before breakfast, 4 mg after lunch, 4 mg after supper, and 4 mg at bedtime. Day 4: 12 mg on day 4 administered as 4 mg before breakfast, 4 mg after lunch, and 4 mg at bedtime. Day 5: 8 mg on day 5 administered as 4 mg before breakfast and 4 mg at bedtime. Day 6: 4 mg on day 6 administered as 4 mg before breakfast.; Then discontinue oxybutynin chloride 5 mg tablet 5 mg PO DAILY hydrocodone-acetaminophen 5-325 mg tablet 1 tab PO Q6H PRN (Reason: pain) Qty: 20 0RF hydrocortisone [Anusol-HC] 2.5 % cream with perineal applicator 1 applic NJ QD-BID PRN (Reason: pain) Qty: 30 0RF cetirizine 10 mg tablet 10 mg PO DAILY azelastine 137 mcg (0.1 %) spray,non-aerosol intranasal meloxicam 7.5 mg tablet 7.5 mg PO DAILY PRN tramadol 50 mg tablet 50 mg PO Q6H PRN (Reason: pain) Qty: 10 0RF amlodipine 5 mg tablet 5 mg PO DAILY loratadine [Allergy Relief (loratadine)] 10 mg tablet 10 mg PO DAILY pantoprazole [Protonix] 40 mg tablet,delayed release (DR/EC) 40 mg PO DAILY tizanidine 4 mg capsule 4 mg PO BEDTIME Referrals: Leonela Worhty DO [Primary Care Provider, Family Practice] Carlo Gibson MD [Physician, General Surgery] Referral Note: 64 yo M, had perianal abscess drained in the ED 01/14/25, needs to follow-up in clinic Stand Alone Forms: Patient Portal/API, Work Release Note ED Sign-out <Kori Loza DO - Last Filed: 01/25/25 07:39> Cosign ED Attending Hitesh Attestation: I was immediately available in the department for consultation.
--- NOTE | 2025-01-14 14:40 | DI.CT.S_ITS ---
PROCEDURE: CT ABDOMEN PELVIS W CON INDICATIONS: left rectal pain concern for abscess TECHNIQUE: After the administration of intravenous contrast, axial sections acquired from the lung bases to the pubic symphysis. Coronal and sagittal reformats were performed. For radiation dose reduction, the following was used: automated exposure control, adjustment of mA and/or kV according to patient size. COMPARISON: None. FINDINGS: Image quality: Diagnostic. Lower Chest: Punctate 2 mm right lower lobe nodule (4/4). Coronary artery calcifications. ABDOMEN: Liver: No solid mass. Gallbladder: No radiopaque gallstones or wall thickening. Biliary ducts: No biliary dilation. Pancreas: No ductal dilation. Spleen: Size is within normal limits. Adrenal Glands: No adrenal nodules. Kidneys and Ureters: No hydronephrosis. No solid mass. No complex renal cystic lesion which requires follow up. Stomach and Bowel: Normal colonic caliber, without significant wall thickening. Soft tissue density with surrounding inflammation at the left aspect of the anus measuring 3.1 x 4.6 cm. Diverticulosis without evidence of acute diverticulitis. Normal appendix. Peritoneum: No abnormal intraperitoneal fluid. No free air. Ventral Wall: No significant ventral hernia. Abdominal Nodes: No retroperitoneal or mesenteric adenopathy by size criteria. Vessels: Aorta and inferior vena cava are normal in size. Atherosclerotic vascular calcifications. PELVIS: Pelvic Organs: Unremarkable. Bladder: No bladder wall thickening, accounting for underdistention. Pelvic Nodes: No enlarged lymph nodes. Miscellaneous: No inguinal hernias are seen. Bones: No aggressive osseous abnormality. IMPRESSION: 1. Soft tissue density with surrounding inflammation of the left aspect of the anus measuring up to 4.6 cm. Findings may represent phlegmon. Recommend clinical correlation and follow-up to exclude underlying neoplastic process. 2. Please see above for additional findings. Dictated by: Ray Del Valle M.D. on 01/14/2025 at 16:30 Approved by: Ray Del Valle M.D. on 01/14/2025 at 16:34
[2025-01-14] MEDS: KETOROLAC 30 MG/ML VIAL 15 MG IV (15:05)
[2025-01-14] MEDS: ONDANSETRON 4 MG/2 ML INJ IV (15:06)
[2025-01-14] MEDS: MORPHINE 4 MG/ML INJ IV (15:06)
[2025-01-14] MEDS: SODIUM CHLORIDE 0.9% 1,000 ML 1000 ML IV (15:08)
[2025-01-14 15:12] LABS: Add Manual Diff / Slide Review NO; Basophils Absolute Auto 0 /uL (0-100); Basophils Percent Auto 0.4 % (0-2); Eosinophils Absolute Auto 100 /uL (0-450); Eosinophils Percent Auto 0.6 % (2-4); Hematocrit 40.1 % (41-53); Hemoglobin 13.9 g/dL (13.5-17.5); Lymphocytes Absolute Auto 1900 /uL (1100-4500); Lymphocytes Percent Auto 18.3 % (25-40); Mean Corpuscular HGB Conc 34.8 % (30-36); Mean Corpuscular Hemoglobin 30.9 PG (26-34); Mean Corpuscular Volume 88.9 fL (80-100); Monocytes Absolute Auto 900 /uL (0-900); Monocytes Percent Auto 8.9 % (3-14); Neutrophils Absolute Auto 7600 /uL (1500-7000); Neutrophils Percent Auto 71.8 % (50-75); Platelet Count 249 X10^3/uL (150-400); Red Cell Distribution Width 13.6 % (11.6-14.8); White Blood Cell Count 10.5 X10^3/uL (4.5-11.0)
[2025-01-14 15:18] LABS: Alanine Aminotransferase 23 IU/L (<50); Albumin 4.3 g/dL (3.5-5.0); Albumin Globulin Ratio 1.4 (1.0-2.8); Alkaline Phosphatase 67 U/L (38-126); Aspartate Aminotransferase 22 IU/L (17-59); BUN Creatinine Ratio 17.6 (6-22); Bilirubin Total 0.6 mg/dL (0.2-1.3); Blood Urea Nitrogen 19 mg/dL (9-20); Calcium 9.3 mg/dL (8.4-10.2); Carbon Dioxide 31 mmol/L (22-32); Chloride 102 mmol/L (98-107); Estimated Glomerular Filt Rate > 60 mL/min (>60); Globulin 3.1 g/dL (1.7-4.1); Glucose 114 mg/dL (70-99); HEMOLYSIS < 15 (0-50); Lactate (Lactic Acid) 0.9 mmol/L (0.7-2.1); Lipase 60 U/L (23-300); Potassium 3.8 mmol/L (3.4-5.1); Sodium 138 mmol/L (137-145); Total Protein 7.4 g/dL (6.3-8.2)
[2025-01-14 15:50] LABS: Bacteria Urine None Seen; Culture Indicated Urine Cult Not Indicated; RBC Urine 1-5/HPF (0-5/HPF); Squamous Epithelial Cell Urine 0-1 /HPF (0-5/HPF); Urine Volume 10mL (spun); WBC Urine 0-1/HPF (0-5/HPF)
[2025-01-14 16:46] VITALS: BP 148/78; PULSE 79; RESP 20; O2SAT 99
[2025-01-14] MEDS: ACETAMINOPHEN 325 MG TABLET 650 MG PO (16:49)
[2025-01-14] MEDS: LIDOCAINE 1% W/EPI 10ML 20 ML INJ (18:00)
[2025-01-14 18:42] VITALS: BP 142/75; PULSE 72; RESP 19; O2SAT 99
== END 2025-01-14 18:43 | disposition home or self-care (01) ==
PROVIDERS: Emergency Provider Physician Assistant; PCP Family Medicine
DX: K61.0 Anal abscess (principal)
CPT/HCPCS: 36415; 74177; 80053; 81003; 81015; 83605; 83690; 85025; 87070; 87075; 87205; 96361; 96374; 96375; 99284; J1885; J2270; J2405; Q9967

== ENCOUNTER → 2025-01-15 13:58 | Outpatient (CLI) | payer MEDICARE, OTHER, SELFPAY | LOC: WC 14:04 | PROVIDERS: PCP Family Medicine; Referring Provider Physician Assistant; Visit Provider Physician Assistant | DX: T81.89XA Other complications of procedures, not elsewhere classified, initial encounter (principal); S31.829A Unspecified open wound of left buttock, initial encounter; K61.0 Anal abscess; L98.8 Other specified disorders of the skin and subcutaneous tissue; I10 Essential (primary) hypertension | CPT/HCPCS: 99204; 99212 ==

== ENCOUNTER → 2025-01-18 11:46 | Outpatient (CLI) | payer MEDICARE, OTHER, SELFPAY | LOC: WC 11:56 | PROVIDERS: PCP Family Medicine; Referring Provider Family Medicine; Visit Provider Surgery | DX: T81.89XA Other complications of procedures, not elsewhere classified, initial encounter (principal); S31.829A Unspecified open wound of left buttock, initial encounter | CPT/HCPCS: 99213 ==

== ENCOUNTER → 2025-01-19 10:07 | Outpatient (CLI) | payer MEDICARE, OTHER, SELFPAY | LOC: WC 10:10 | PROVIDERS: PCP Family Medicine; Referring Provider Family Medicine; Visit Provider Surgery | DX: T81.89XA Other complications of procedures, not elsewhere classified, initial encounter (principal); S31.829A Unspecified open wound of left buttock, initial encounter | CPT/HCPCS: 99213 ==

== ENCOUNTER → 2025-01-20 10:08 | Outpatient (CLI) | payer MEDICARE, OTHER, SELFPAY | LOC: WC 10:10 | PROVIDERS: PCP Family Medicine; Referring Provider Family Medicine; Visit Provider Surgery | DX: T81.89XA Other complications of procedures, not elsewhere classified, initial encounter (principal); L98.8 Other specified disorders of the skin and subcutaneous tissue; S31.829A Unspecified open wound of left buttock, initial encounter | CPT/HCPCS: 99213 ==

== ENCOUNTER → 2025-01-21 11:41 | Outpatient (CLI) | payer MEDICARE, OTHER, SELFPAY | PROVIDERS: PCP Family Medicine; Referring Provider Family Medicine; Visit Provider Surgery | DX: T81.89XA Other complications of procedures, not elsewhere classified, initial encounter (principal); S31.829A Unspecified open wound of left buttock, initial encounter | CPT/HCPCS: 99212; 99213 ==

== ENCOUNTER → 2025-01-22 11:09 | Outpatient (CLI) | payer MEDICARE, OTHER, SELFPAY | PROVIDERS: PCP Family Medicine; Referring Provider Family Medicine; Visit Provider Physician Assistant | DX: T81.89XA Other complications of procedures, not elsewhere classified, initial encounter (principal); L98.8 Other specified disorders of the skin and subcutaneous tissue; S31.829A Unspecified open wound of left buttock, initial encounter | CPT/HCPCS: 99213 ==

== ENCOUNTER → 2025-01-25 16:18 | Outpatient (CLI) | payer MEDICARE, OTHER, SELFPAY | LOC: WC 16:19 | PROVIDERS: PCP Family Medicine; Referring Provider Family Medicine; Visit Provider Physician Assistant | DX: T81.89XA Other complications of procedures, not elsewhere classified, initial encounter (principal); S31.829A Unspecified open wound of left buttock, initial encounter | CPT/HCPCS: 99212 ==

== ENCOUNTER → 2025-01-26 09:24 | Outpatient (CLI) | payer MEDICARE, OTHER, SELFPAY | PROVIDERS: Family Provider Family Medicine; PCP Family Medicine; Referring Provider Family Medicine; Visit Provider Surgery | DX: T81.89XA Other complications of procedures, not elsewhere classified, initial encounter (principal); S31.829A Unspecified open wound of left buttock, initial encounter | CPT/HCPCS: 99213 ==

== ENCOUNTER → 2025-01-27 11:34 | Outpatient (CLI) | payer MEDICARE, OTHER, SELFPAY | PROVIDERS: Family Provider Family Medicine; PCP Family Medicine; Referring Provider Family Medicine; Visit Provider Surgery | DX: T81.89XA Other complications of procedures, not elsewhere classified, initial encounter (principal); S31.829A Unspecified open wound of left buttock, initial encounter | CPT/HCPCS: 99212 ==

== ENCOUNTER → 2025-01-28 10:34 | Outpatient (CLI) | payer MEDICARE, OTHER, SELFPAY | PROVIDERS: Family Provider Family Medicine; PCP Family Medicine; Referring Provider Family Medicine; Visit Provider Surgery | DX: T81.89XA Other complications of procedures, not elsewhere classified, initial encounter (principal); S31.829A Unspecified open wound of left buttock, initial encounter | CPT/HCPCS: 99213 ==

== ENCOUNTER → 2025-01-29 09:11 | Outpatient (CLI) | payer OTHER, SELFPAY | LOC: WC 09:11 | PROVIDERS: Family Provider Family Medicine; PCP Family Medicine; Referring Provider Family Medicine; Visit Provider Surgery | DX: T81.89XA Other complications of procedures, not elsewhere classified, initial encounter (principal); S31.829A Unspecified open wound of left buttock, initial encounter; K61.1 Rectal abscess | CPT/HCPCS: 99212; 99213 ==

== ENCOUNTER → 2025-02-01 15:11 | Outpatient (CLI) | payer OTHER, SELFPAY | LOC: WC 15:12 | PROVIDERS: Family Provider Family Medicine; PCP Family Medicine; Referring Provider Family Medicine; Visit Provider Surgery | DX: T81.89XA Other complications of procedures, not elsewhere classified, initial encounter (principal); S31.829A Unspecified open wound of left buttock, initial encounter | CPT/HCPCS: 99213 ==

== ENCOUNTER → 2025-02-02 15:43 | Outpatient (CLI) | payer OTHER, SELFPAY | LOC: WC 15:44 | PROVIDERS: Family Provider Family Medicine; PCP Family Medicine; Referring Provider Family Medicine; Visit Provider Surgery | DX: S31.829A Unspecified open wound of left buttock, initial encounter (principal) | CPT/HCPCS: 99213 ==

== ENCOUNTER → 2025-02-03 16:09 | Outpatient (CLI) | payer OTHER, SELFPAY | LOC: WC 16:09 | PROVIDERS: Family Provider Family Medicine; PCP Family Medicine; Referring Provider Family Medicine; Visit Provider Surgery | DX: T81.89XA Other complications of procedures, not elsewhere classified, initial encounter (principal); S31.829A Unspecified open wound of left buttock, initial encounter | CPT/HCPCS: 99212 ==

== ENCOUNTER → 2025-02-04 10:29 | Outpatient (CLI) | payer OTHER, SELFPAY | LOC: WC 10:30 | PROVIDERS: Family Provider Family Medicine; PCP Family Medicine; Referring Provider Family Medicine; Visit Provider Surgery | DX: T81.89XA Other complications of procedures, not elsewhere classified, initial encounter (principal); S31.829A Unspecified open wound of left buttock, initial encounter | CPT/HCPCS: 99212; 99213 ==

== ENCOUNTER → 2025-02-10 09:06 | Outpatient (CLI) | payer MEDICARE, OTHER, SELFPAY | PROVIDERS: Family Provider Family Medicine; PCP Family Medicine; Referring Provider Family Medicine; Visit Provider Surgery | DX: T81.89XD Other complications of procedures, not elsewhere classified, subsequent encounter (principal); S31.829D Unspecified open wound of left buttock, subsequent encounter | CPT/HCPCS: 99213 ==

== ENCOUNTER → 2025-04-26 09:04 | Outpatient (CLI) | payer OTHER, MEDICARE, SELFPAY ==
--- NOTE | 2025-04-26 | DI.RAD.S_ITS ---
PROCEDURE: XR HIP W PEL IF DONE LT 2V INDICATIONS: ARTHRITIS TECHNIQUE: Two views hip were acquired. COMPARISON: [facility], CR, XR HIP W PEL LT 2V, 12/16/2024, 9:22. FINDINGS: Bones: There are no osseous abnormalities. SI and hip joints: Severe right and moderate left hip degeneration noted. Mild bilateral SI degeneration. Moderate L5-S1 degenerative disc and facet disease . Soft tissues: No soft tissue swelling, calcification or mass. IMPRESSION: Severe right and moderate left hip degeneration Dictated by: Freddy Edgar M.D. on 04/27/2025 at 6:44 Approved by: Freddy Edgar M.D. on 04/27/2025 at 6:45
--- NOTE | 2025-04-26 | DI.RAD.S_ITS ---
PROCEDURE: XR ELBOW LT 2V INDICATIONS: ARTHRITIS TECHNIQUE: Two views of the left elbow were acquired. COMPARISON: None. FINDINGS: Bones: 4 mm bone island is noted the lateral humeral condyle. No significant osseous abnormality. Abnormalities Elbow joint: Normal in width and alignment without arthritic change. There are no effusions. Soft tissues: No soft tissue swelling, calcification or mass. IMPRESSION: Normal elbow Dictated by: Freddy Edgar M.D. on 04/27/2025 at 6:47 Approved by: Freddy Edgar M.D. on 04/27/2025 at 6:48
--- NOTE | 2025-04-26 | DI.RAD.S_ITS ---
PROCEDURE: XR HAND LT 2V INDICATIONS: ARTHRITIS TECHNIQUE: Two views of the left hand were) acquired. COMPARISON: None. FINDINGS: Bones: Os styloideum noted. There are no significant osseous abnormalities Joints: Mild distal radial ulnar, radiocarpal, severe 1st CMC and mild 1st through 5th MCP and PIP degeneration noted. Soft tissues: No soft tissue abnormality. IMPRESSION: Degeneration Dictated by: Freddy Edgar M.D. on 04/27/2025 at 6:48 Approved by: Freddy Edgar M.D. on 04/27/2025 at 6:49
--- NOTE | 2025-04-26 | DI.RAD.S_ITS ---
PROCEDURE: XR WRIST LT 2V INDICATIONS: ARTHRITIS TECHNIQUE: Two views of the left wrist were acquired. COMPARISON: None. FINDINGS: Bones: Os styloideum noted There are no significant osseous abnormalities Joints: Mild distal radioulnar radiocarpal and severe 1st CMC degeneration . Soft tissues: No soft tissue abnormality. IMPRESSION: Degeneration Dictated by: Freddy Edgar M.D. on 04/27/2025 at 6:46 Approved by: Freddy Edgar M.D. on 04/27/2025 at 6:47
--- NOTE | 2025-04-26 09:10 | DI.RAD.S_ITS ---
PROCEDURE: XR CHEST 2V INDICATIONS: chronic cough TECHNIQUE: 2 views of the chest were acquired. COMPARISON: None. FINDINGS: Heart, mediastinum and pulmonary vascular: Heart is normal in size and configuration. Mediastinum is unremarkable. Pulmonary vascular is normal. Lungs: Clear Pleural spaces: Normal-no effusions or pneumothorax. Bones and soft tissues: Moderate degenerative disc disease seen throughout the midthoracic spine IMPRESSION: No delete cardiopulmonary disease Dictated by: Freddy Edgar M.D. on 04/27/2025 at 6:45 Approved by: Freddy Edgar M.D. on 04/27/2025 at 6:46
== END ==
PROVIDERS: PCP Family Medicine; Referring Provider Chiropractor; Visit Provider Chiropractor
DX: M16.0 Bilateral primary osteoarthritis of hip (principal); R05.3 Chronic cough; M51.34 Other intervertebral disc degeneration, thoracic region; M18.12 Unilateral primary osteoarthritis of first carpometacarpal joint, left hand; M19.032 Primary osteoarthritis, left wrist
CPT/HCPCS: 71046; 73070; 73100; 73120; 73502

== ENCOUNTER 2025-05-25 10:16 | Outpatient (CLI) | payer OTHER, SELFPAY ==
[2025-05-25] VITALS (8 sets, daily range): BP systolic 134–188; BP diastolic 72–81; PULSE 58–75; RESP 16–20; TEMP 36.3; O2SAT 97–100
[2025-05-25] MEDS: MIDAZOLAM 2 MG/2 ML VIAL IV (11:31)
[2025-05-25] MEDS: BETAMETHASONE 30 MG/5 ML MDV 12 MG INJ (11:35)
--- NOTE | 2025-05-25 11:48 | P.PCN_ITS ---
Date/Time/Diagnoses Date of procedure: 05/25/25 Time of procedure: 11:48 Pre-procedure diagnosis: 1. FORAMINAL STENOSIS WITH LE SYMPTOMS Post-procedure diagnosis: same Procedure Notes Procedure: 1. FLUOROSCOPICALLY GUIDED CONTRAST CONTROLLED TRANSFORAMINAL EPIDURAL STEROID INJECTION - LEFT L4/5 Indications: [facility] is referred by Dr. Worthy for treatment of Foraminal Stenosis with Left LE Symptoms Physician: Carlo Ahumada Total Fluoroscopy time (seconds): 8 Total sedation minutes: 13 Complications: none Procedure in detail & Post-procedure care: FINDINGS Foraminal Nerve Root Compression secondary to disc disease and facet hypertrophy DESCRIPTION OF PROCEDURE Following review of allergy and review of potential side effects and complications, including, but not necessarily limited to, infection, allergic reaction, local tissue breakdown, stroke, temporary or permanent nerve injury, paralysis, and possible , the patient indicated that the patient understood and agreed to proceed. An informed consent document was signed by the patient, witnessed by a nurse, and placed in the patient's chart. Additionally, other treatment options including medications, modalities, and physical therapy were reviewed with the patient. After review of previous anaesthesic history and IV conscious sedation the patient was deemed safe to proceed with today?s procedure with IV conscious sedation as ASA class II designation. Safety time-out was performed to confirm patient ID, procedure to be performed and site of procedure. IV sedation was accomplished with a combination of 2mg of Versed administered by the RN after DO order, titrated to patient comfort during the course of the procedure while the patient remained responsive to all verbal commands In the prone position following sterile prep and drape of the lumbar region, the left L4/5 posterior neuroforamen was identified fluoroscopically. The skin was anesthetized via a 25-gauge 1.5-inch needle with 1% lidocaine solution. At this point, a 25-gauge 3.5-inch spinal needle was atraumatically introduced and advanced under fluoroscopic guidance through the posterior left L4/5 neuroforamen to approximately the anterior aspect of the canal. Depth was confirmed on lateral view. Following negative aspiration, injection of approximately 1.5 cc of Isovue 200 under live fluoroscopy in the AP view confirmed excellent flow along the nerve root, into the epidural space without vascular or intrathecal uptake observed Radiological data, including multiple fluoroscopic views of the lumbosacral spine, reveal a spinal needle at the left L4/5 posterior neuroforamen. Subsequent views show flow of contrast material flowing superiorly and inferiorly along the nerve root confirming epidural flow. Subsequently, a test dose of 1.5cc of 0.25% marcaine solution was administered and patient was observed for two minutes for signs or symptoms of complications, including abdominal pain, shortness of breath, bilateral upper or lower extremity weakness, nausea and vomiting, prior to steroid injection. At this point, a total of 3cc or 10mg of dexamethasone and 12mg of betamethasone was injected without incident. The procedure tolerated the procedure well without signs or symptoms of complications prior to transfer to the recovery area continued monitoring without incident. The patient was then transferred to the recovery area where they were observed for an appropriate time after the injection. The patient reported a VAS score of 7 prior to the procedure and a post- procedure VAS of 0. POST OP INSTRUCTIONS The patient was provided a Pain Log to continue to record their response to the target-specific procedure prior to follow-up visit with their referring physician. Additionally, specific post-injection care instructions and a contact number to our office were provided if concerns arise regarding possible complications associated with the procedure are suspected.
== END 2025-05-25 12:08 | disposition home or self-care (01) ==
PROVIDERS: PCP Family Medicine; Referring Provider Physical Medicine & Rehabilitation; Visit Provider Physical Medicine & Rehabilitation
DX: M48.061 Spinal stenosis, lumbar region without neurogenic claudication (principal); M51.16 Intervertebral disc disorders with radiculopathy, lumbar region; M47.26 Other spondylosis with radiculopathy, lumbar region
CPT/HCPCS: 64483; 99152; J0702; J1100; J2250

== ENCOUNTER → 2025-05-26 08:55 | Outpatient (CLI) | payer OTHER, SELFPAY ==
--- NOTE | 2025-05-26 | DI.RAD.S_ITS ---
PROCEDURE: XR HIP W PEL IF DONE RT 2V INDICATIONS: PAIN TECHNIQUE: 2 views of the hip were acquired. COMPARISON: [facility], CR, XR HIP W PEL LT 2V, 04/26/2025, 9:08. FINDINGS: [id number] degenerative changes of the right hip with joint space narrowing, osteophytes, sclerotic changes Kellgren Henry grade 3-4. No radiographic evidence of fracture, dislocation or high attenuation soft tissue foreign body. IMPRESSION: Degenerative changes right hip. Dictated by: Julius Cooley M.D. on 05/26/2025 at 10:20 Approved by: Julius Cooley M.D. on 05/26/2025 at 10:39
--- NOTE | 2025-05-26 | DI.RAD.S_ITS ---
PROCEDURE: XR ELBOW RT 2V INDICATIONS: PAIN TECHNIQUE: 2 views of the elbow were acquired. COMPARISON: None. FINDINGS: Bones: No fractures or dislocations. No suspicious bony lesions. Soft tissues: No elbow joint effusion. No suspicious soft tissue calcifications. IMPRESSION: No acute bony abnormality or significant joint effusion. Dictated by: Mathew Tony M.D. on 05/26/2025 at 9:28 Approved by: Mathew Tony M.D. on 05/26/2025 at 9:29
--- NOTE | 2025-05-26 | DI.RAD.S_ITS ---
PROCEDURE: XR HAND RT 2V INDICATIONS: PAIN TECHNIQUE: 2 views of the hand(s) acquired. COMPARISON: [facility], CR, XR HAND LT 2V, 04/26/2025, 9:08. FINDINGS: Bones: No fractures or dislocations. Carpal bones are normally aligned. No suspicious bony lesions. Moderate to severe degenerative arthrosis of the thumb carpometacarpal joint. Soft tissues: No suspicious soft tissue calcifications. IMPRESSION: No acute bony abnormality. Moderate to severe degenerative arthrosis of the right carpometacarpal joint. Moderate degenerative arthrosis of the left thumb carpometacarpal joint. Dictated by: Mathew Tony M.D. on 05/26/2025 at 9:24 Approved by: Mathew Tony M.D. on 05/26/2025 at 9:28
--- NOTE | 2025-05-26 | DI.RAD.S_ITS ---
PROCEDURE: XR ANKLE RT 2V INDICATIONS: PAIN TECHNIQUE: 2 views of the ankle were acquired. COMPARISON: None. FINDINGS: [id number] degenerative changes most notably at the tibiotalar, subtalar, talonavicular, calcaneocuboid joints with joint space narrowing and osteophytes. Well corticated os trigonum posterior to the talus on the lateral image. 3 mm inferior and posterior calcaneal enthesophyte calcifications. No radiographic evidence of displaced fracture, dislocation or high attenuation foreign body. IMPRESSION: Degenerative changes as discussed above. If symptoms persist or worsen, or there is high clinical suspicion of right ankle abnormality, MRI could be performed. Dictated by: Julius Cooley M.D. on 05/26/2025 at 10:50 Approved by: Julius Cooley M.D. on 05/26/2025 at 11:00
--- NOTE | 2025-05-26 | DI.RAD.S_ITS ---
PROCEDURE: XR WRIST RT 2V INDICATIONS: PAIN TECHNIQUE: 2 views of the wrist were acquired. COMPARISON: [facility], CR, XR WRIST LT 2V, 04/26/2025, 9:08. FINDINGS: Bones: No fractures or dislocations. No suspicious bony lesions. Severe degenerative arthrosis of the thumb carpometacarpal joint. Soft tissues: No suspicious soft tissue calcifications. IMPRESSION: No acute bony abnormality. Severe degenerate arthrosis of the right carpometacarpal joint. Dictated by: Mathew Tony M.D. on 05/26/2025 at 9:23 Approved by: Mathew Tony M.D. on 05/26/2025 at 9:24
== END ==
PROVIDERS: PCP Family Medicine; Referring Provider Family Medicine; Visit Provider Chiropractor
DX: M19.031 Primary osteoarthritis, right wrist (principal); M18.11 Unilateral primary osteoarthritis of first carpometacarpal joint, right hand; M77.31 Calcaneal spur, right foot; M25.771 Osteophyte, right ankle
CPT/HCPCS: 73070; 73100; 73120; 73502; 73600

== ENCOUNTER → 2025-06-10 09:22 | Outpatient (CLI) | payer MEDICARE, OTHER, SELFPAY ==
--- NOTE | 2025-06-10 09:30 | DI.MRI.S_ITS ---
PROCEDURE: MR LUMBAR SPINE WO CON
== END ==
LOC: MRI 09:25
PROVIDERS: PCP Family Medicine; Referring Provider Family Medicine; Visit Provider Family Medicine
DX: M47.26 Other spondylosis with radiculopathy, lumbar region (principal); M47.27 Other spondylosis with radiculopathy, lumbosacral region; G57.02 Lesion of sciatic nerve, left lower limb; M43.17 Spondylolisthesis, lumbosacral region; M48.07 Spinal stenosis, lumbosacral region; M48.061 Spinal stenosis, lumbar region without neurogenic claudication; N28.1 Cyst of kidney, acquired
CPT/HCPCS: 72148